=== PATIENT | male | born 1980 | race Caucasian/White ===

== ENCOUNTER 2017-03-12 14:58 | Emergency (ER) | payer OTHER ==
[2017-03-12 15:18] VITALS: RESP 16; TEMP 98.6
--- NOTE | 2017-03-12 16:22 | EDPHY ---
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 Patient was following up with occupational health because he continues to have persistent pain and some swelling in his knee and he was referred to the emergency department because of concern about DVT. Patient had some minimal swelling but no redness. He is able to weightbear with minimal pain. He was seen in urgent care 1 week ago and given Mobic and cyclobenzaprine and his improved since then. He has been wearing a knee immobilizer. There is no family history of blood clotting. Pain is mostly localized to the lateral side of his knee. REVIEW OF SYSTEMS: As in HPI, and all other systems reviewed and are negative Smoking Status: Never smoked Physical Exam: General Appearance: Alert and no distress. Eyes: Pupils equal and round no injection. Musculoskeletal: Neck is supple and nontender. Extremities: Left knee with small amount of medial swelling, no redness or warmth, full range of motion with minimal pain, no calf swelling or tenderness, negative Homans, DP pulse 2 +and equal to right, wiggles all toes in full range of motion of ankle. Skin: No rashes or lesions except as described above. Constitutional: Initial Vital Signs Temperature (C) 37.0 C 03/12/17 15:16 Heart Rate 100 03/12/17 15:16 Respiratory Rate 16 03/12/17 15:16 Blood Pressure 114/74 03/12/17 15:16 O2 Sat (%) 95 03/12/17 15:16 O2 Delivery Mode Room Air Allergies/Adverse Reactions: tomato Allergy (Intermediate, Verified 03/12/17 15:19) Vomiting Home Medications: Medication Instructions Recorded Cyclobenzaprine 03/12/17 Mobic 15 mg 03/12/17 MDM/Departure - MDM Imaging Results: Imaging Impressions Extremity Venous Study 03/12/17 15:30 Impression: No evidence of deep vein thrombosis. Findings discussed with Saray Davis MD 03/12/2017 at 15:57. ED Course/Re-evaluation: 36-year-old man referred for ultrasound from the workmen's comp clinic because of concern about DVT from an injury 10 days ago. Ultrasound showed no evidence of DVT. We discussed conservative measures for the patient's injury and I am recommending stopping the knee immobilizer and continue Mobic as needed for pain. Patient has an appointment scheduled with workmen's comp for follow-up in 6 days. - Depart Disposition: Home, Routine, Self-Care Clinical Impression: Injury of left knee Qualifiers: Encounter type: sequela Qualified Code(s): S89.92XS - Unspecified injury of left lower leg, sequela Condition: Good Instructions: Knee Pain (ED) Additional Instructions: You were seen by Dr. Saray Davis today. Continue to take the Mobic as needed for pain. This will not make her drowsy. This cyclobenzaprine should be avoided when your working or driving. Increased mobility of the knee and wear the knee brace only when absolutely necessary for pain. Follow up with occupational health as scheduled. Return for any worsening or new concerns. Referrals: Alysha Jimenez MD [Primary Care Provider] - As per Instructions
[2017-03-12 16:36] VITALS: BP 121/75; PULSE 67; O2SAT 96
== END 2017-03-12 16:35 | disposition home or self-care (01) ==
LOC: CED 14:58
DX: S89.92XA Unspecified injury of left lower leg, initial encounter (principal); W20.8XXA Other cause of strike by thrown, projected or falling object, initial encounter; Y92.69 Other specified industrial and construction area as the place of occurrence of the external cause; Y99.0 Civilian activity done for income or pay; Y93.89 Activity, other specified
CPT/HCPCS: 93971-PO